=== PATIENT | female | born 2000 | race Caucasian/White ===

== ENCOUNTER → 2021-01-05 02:20 | Outpatient (CLI) | payer OTHER, SELFPAY ==
[2021-01-05 23:32] LABS: SARS-CoV-2 RNA PCR Negative
== END ==
PROVIDERS: Visit Provider Surgery Plastic and Reconstructive Surgery
DX: Z01.812 Encounter for preprocedural laboratory examination (principal); Z20.822 Contact with and (suspected) exposure to COVID-19
CPT/HCPCS: C9803; U0003; U0005

== ENCOUNTER 2021-01-08 00:19 | Day surgery (SDC) | payer OTHER, SELFPAY ==
[2020-12-29 17:23] VITALS: BMI 24.9
--- NOTE | 2021-01-07 14:29 | WPDANESEPPF ---
Anes - Initial Pre Proc Eval Procedure: Operation Date: 01/08/21 12:00 Proposed Procedures p Bilateral Breast Reduction - Abilio Elena MD Date/Time: 01/07/21 14:29 Surgeon: Abilio Elena MD Pre Op Diagnosis: macromastia Patient Data Age: 20 Gender: F Height: 1.63 m Weight: 65.9 kg Allergies Allergy/AdvReac Type Severity Reaction Status Date / Time vancomycin Allergy Intermediate Rash Verified 01/08/21 10:31 Home Medications Medication Instructions Recorded Confirmed Type sertraline 100 mg tablet 200 mg PO BID tablet 11/11/20 01/08/21 History docusate sodium 100 mg capsule 100 mg PO BID #14 cap 12/23/20 01/08/21 Rx hydrocodone 5 mg-acetaminophen 325 1 tablet PO Q6H PRN #15 tablet 12/23/20 01/08/21 Rx mg tablet ondansetron HCl 4 mg tablet 4 mg PO Q6H PRN #30 tablet 12/23/20 01/08/21 Rx Multi For Her 1 tab-cap PO DAILY 12/29/20 01/08/21 History ascorbic acid (vitamin C) [Vitamin 250 mg PO DAILY 12/29/20 01/08/21 History C] levonorgestrel [Mirena] 1 INTRAUTERINE 12/29/20 History Patient hx anesthesia problems: none Family hx anesthesia problems: none PMFSH Past Medical History Medical History (Updated 01/07/21 @ 14:29 by Tab Gerber MD) Anxiety Chronic back pain Chronic neck pain Chronic pain of both shoulders Hx of reduction of open fracture Macromastia Surgical History Surgical History History of wisdom tooth extraction Social History Social History Smoking status: Never smoker Alcohol intake: never Substance use: never Living arrangements: with family Spiritual care concerns: No Anes - Eval Final PreProcedure Day of Procedure 01/07/21 14:29 Patient weight: normal Heart: regular rate and rhythm Lungs: clear to auscultation and normal air movement Airway: Mallampati scale class II Neurological: alert and oriented Last oral intake: >/= 8 hours ASA classification: II Emergent: no Anesthetic plan: proceed Anesthesia type and monitoring: general LMA Informed Consent: The patient's anesthetic plan and its attendant risks and benefits were discussed with the patient/family/POA. Questions were solicited and answers provided to the satisfaction of the patient/family/POA.
[2021-01-08] VITALS (8 sets, daily range): BP systolic 102–142; BP diastolic 48–79; PULSE 61–94; RESP 12–20; TEMP 36.4; O2SAT 96–100
[2021-01-08] MEDS: LACTATED RINGERS 500 ML 999 ML IV CONT (10:43)
[2021-01-08] MEDS: LACTATED RINGERS 1,000 ML 30 ML IV CONT ×2 (10:43→12:00)
[2021-01-08 10:54] LABS: Urine Cotinine NEGATIVE
--- NOTE | 2021-01-08 11:47 | WPDHPUPDATE1 ---
History and Physical Update Update Date/Time: 01/08/21 11:47 History and Physical has been reviewed, including an updated exam of the patient. There are NO changes in the patient's condition. Risks, benefits, and alternatives have been discussed and questions answered. Patient agrees to proceed with procedure.
--- NOTE | 2021-01-08 12:00 | W.PM.PROC2 ---
Procedure Note - Detailed Date of Procedure 01/08/21 Pre-op Diagnosis macromastia Post-op Diagnosis same Procedure Performed Bilateral reduction mammaplasty Surgeon Abilio Elena MD Anesthesia general Findings Inverted T Superior Pedicle Tissue removed: Right: 233 grams + suction lipectomy volume Left: 240.9 grams + suction lipectomy volume Description of Procedure She is here today for bilateral breast reduction. Previously and again today the risks, benefits, alternatives were discussed in extensive detail. I wanted her to be very realistic about the risks involved as well as expectations. We discussed aftercare and what to monitor for. She understands we can never guarantee final breast size and there will always be asymmetry. I was very upfront and honest about the risks of sensation change and even nipple loss (). Made sure answered all of her questions to her satisfaction today and consent was obtained. She was marked in the preoperative holding area with their verification. The patient was taken to the operating room placed supine on the operating table. Anesthesia was provided by anesthesiology. She was prepped and draped in a standard sterile fashion. A surgical time-out was taken. Stab incisions were made and I tumessed with a tumescent solution. I marked out the nipple-areolar complex at 38 mm. I then de-epithelialized the pedicle. The pedicle was well left well more than 2 cm in thickness. I then removed the inferior portion of the breast as well as the central keel to get shape based on preoperative planning. At this point copiously irrigated with saline solution and verified a strict hemostasis. I reapproximated the pillars using a 2-0 PDS as well as along the IMF. I tailor tacked the breast into place with ray. She was placed in a sitting position. I verified the nipple-areolar complex position based on preoperative markings, intraoperative measurements, and observation which were in full agreement. This nipple-areolar complex was marked at 38 mm in size. Laterally she had a degre of fullness and suction lipectomy based on modification of S.A.F.E. technique using 4mm basket cannula was completed in multiple planes and passes to a rolling pinch test. I then placed supine and de-epithelialized this. Nipple-areolar complex was inset with 3-0 Monocryl. I closed the vertical incision with 3-0 Monocryl in the IMF with 3-0 stratafix. Then everything was closed using a running subcuticular 4-0 Monocryl followed by Steri-Strips. A dressing was placed followed by surgical bra. Patient was awoke and taken to PACU without difficulty. All instrument sponge counts were correct at the end of the case. Estimated Blood Loss 35 Drains No Packing No Pathology yes Complications No immediate complications Condition stable Disposition PACU
[2021-01-08] MEDS: ceFAZolin 2 GM/D5W 50 ML 2 GM/50 ML BAG IVPB (12:07)
[2021-01-08] MEDS: TRANEXAMIC ACID 1,000MG/ISO100 1,000 MG/100 ML BAG 200 MG IVPB (12:23)
[2021-01-08] MEDS: LACTATED RINGERS IRRIG 1,000 ML, LIDOCAINE HCL 1% LOCAL INJ 50 ML, EPINEPHrine HCL INJ ... INFILTRATE (12:39)
[2021-01-08] MEDS: fentaNYL CITRATE INJ (*CRX) 100 MCG/2 ML VIAL 25 MCG IV PUSH ×5 (15:20→15:34)
[2021-01-08] MEDS: oxyCODONE HCL (*CRX) 5 MG TAB IR PO (15:59)
== END 2021-01-08 16:40 | disposition home or self-care (01) ==
PROVIDERS: Visit Provider Surgery Plastic and Reconstructive Surgery
PROC: 0HBV0ZZ Excision of Bilateral Breast, Open Approach (ICD-10-PCS; CPT 19318; principal; 2021-01-08 12:00)
DX: N62 Hypertrophy of breast (principal); N60.32 Fibrosclerosis of left breast; N60.31 Fibrosclerosis of right breast; N60.41 Mammary duct ectasia of right breast; N60.81 Other benign mammary dysplasias of right breast; M54.5 Low back pain; M54.2 Cervicalgia; M25.512 Pain in left shoulder; M25.511 Pain in right shoulder; G89.29 Other chronic pain; F41.9 Anxiety disorder, unspecified; Z79.891 Long term (current) use of opiate analgesic
CPT/HCPCS: 19318; 80307; 88305; A9270; J0171; J0690; J1100; J1200; J2250; J2405; J2704; J3010; J7120

== ENCOUNTER 2021-01-14 15:13 | Outpatient (CLI) | payer OTHER, SELFPAY ==
[2021-01-14 15:25] LABS: Basophils Absolute Auto 0.1 K/mm3 (0.0-0.1); Basophils Percent Auto 0.8 % (0.2-1.2); Eosinophils Absolute Auto 0.1 K/mm3 (0-0.3); Eosinophils Percent Auto 1.5 % (0-4.4); Hematocrit 34.8 % (37.0-47.0); Hemoglobin 11.1 g/dL (12.0-15.0); Immature Granulocyte Absolute 0.01 K/mm3 (0.00-0.031); Immature Granulocyte Percent A 0.1 % (0-0.5); Lymphocytes Absolute Auto 2.64 K/mm3 (0.9-3.2); Mean Corpuscular HGB Conc 31.9 g/dl (32-36); Mean Corpuscular Hemoglobin 27.7 pg (26-34); Mean Corpuscular Volume 86.8 fl (80-100); Mean Platelet Volume 9.8 fl (7.4-10.4); Monocytes Absolute Auto 0.4 K/mm3 (0.1-0.6); Monocytes Percent Auto 5.1 % (2.6-8.5); Neutrophils Absolute Auto 4.8 K/mm3 (1.3-6.7); Neutrophils Percent Auto 59.5 % (45.5-73.1); Platelet Count Result 305 k/mm3 (150-375); Red Blood Count 4.01 M/mm3 (4.2-5.4); Red Cell Distribution Width 13.3 % (11.5-14.5)
== END 2021-01-14 15:14 | disposition home or self-care (01) ==
PROVIDERS: Visit Provider Nurse Practitioner
DX: N62 Hypertrophy of breast (principal)
CPT/HCPCS: 36415; 85025